=== PATIENT | male | born 1980 | race Caucasian/White ===

== ENCOUNTER 2016-12-31 03:06 | Emergency (ER) | payer SELFPAY ==
--- NOTE | 2016-12-31 03:24 | C.PDOC ---
History Of Present Illness 36 year old male presents to the ED via BLS for public intoxication. Patient admits to drinking today and has no other complaints at this time. Denies abdominal pain, vomiting, or GI bleeding. Time Seen by Provider: 12/31/16 03:18 Chief Complaint (Nursing): Substance Abuse History Per: Patient, EMS History/Exam Limitations: no limitations Onset/Duration Of Symptoms: Hrs Current Symptoms Are (Timing): Still Present Suicide/Self Injury Attempted (Context): None Modifying Factor(s): Alcohol Pain Scale Rating Of: 0 Past Medical History Reviewed: Historical Data, Nursing Documentation, Vital Signs Vital Signs: Last Vital Signs Temp 98 F 12/31/16 03:19 Pulse 100 H 12/31/16 03:19 Resp 18 12/31/16 03:19 BP 128/89 12/31/16 03:19 Pulse Ox 97 12/31/16 03:19 Family History: States: No Known Family Hx - Social History Hx Tobacco Use: No Hx Alcohol Use: Yes Hx Substance Use: No - Immunization History Hx Tetanus Toxoid Vaccination: No Hx Influenza Vaccination: No Hx Pneumococcal Vaccination: No Review Of Systems Except As Marked, All Systems Reviewed And Found Negative. Constitutional: Positive for: Other (+Intoxication). Negative for: Fever, Chills Cardiovascular: Negative for: Chest Pain, Palpitations Respiratory: Negative for: Cough, Shortness of Breath Gastrointestinal: Negative for: Vomiting Psych: Negative for: Withdrawal Physical Exam - Physical Exam Appears: Non-toxic, No Acute Distress, Other (+AOB + Intoxicated) Skin: Normal Color, Warm, Dry Head: Atraumatic, Normacephalic Eye(s): bilateral: Normal Inspection Oral Mucosa: Moist Chest: Symmetrical Cardiovascular: Rhythm Regular Respiratory: Normal Breath Sounds, No Accessory Muscle Use Extremity: Normal ROM Neurological/Psych: Normal Speech (slurred speech), Other (+Eyes open and answering questions appropriately) Disposition - Disposition Disposition Time: 06:57 Condition: STABLE - Clinical Impression Clinical Impression: Alcohol intoxication - 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 - Scribe Statement The provider has reviewed the documentation as recorded by the Scribe Janae De Anda. All medical record entries made by the Scribe were at my direction and personally dictated by me. I have reviewed the chart and agree that the record accurately reflects my personal performance of the history, physical exam, medical decision making, and the department course for this patient. I have also personally directed, reviewed, and agree with the discharge instructions and disposition. Physician Patient Turnover Patient Signed Over To: Marisela Valdez Handoff Comments: Pending sobriety
[2016-12-31 07:21] VITALS: BP 118/73; PULSE 98; RESP 16; TEMP 98; O2SAT 96
== END 2016-12-31 07:29 | disposition left against medical advice (07) ==
LOC: SUPCPDRO 03:06 → C.ER 03:06
DX: F10.120 Alcohol abuse with intoxication, uncomplicated (principal); Y90.9 Presence of alcohol in blood, level not specified

== ENCOUNTER 2018-12-02 09:06 | Emergency (ER) | payer SELFPAY | END 2018-12-02 13:47 | disposition home or self-care (01) | LOC: C.ER 09:06 ==